=== PATIENT | female | born 1990 | race Two or more races ===

== ENCOUNTER 2019-07-21 13:35 | Observation (INO) | payer MEDICAID ==
[~2019-07-21] VITALS: Ht 167.6 cm; Wt 106.6 kg
[~2019-07-21 13:35] MED LIST: INSLISPI SC; INSUINJ2 SC; PREN-96 PO
[2019-07-21] MEDS ORDERED: INSR100KIT SUBCON (14:10)
[2019-07-21 14:42] LABS: Urine Bacteria FEW /hpf (None Seen); Urine Blood TRACE /uL (Negative); Urine Specific Gravity 1.006 (1.001-1.035); Urine WBC 30 /hpf (0 - 5)
[2019-07-21] MEDS ORDERED: LACTATED RINGER'S 1,000 ML IV ONE (14:45)
[2019-07-21] MEDS ORDERED: NIFEdipine 10 MG CAP PO ONE (14:45)
== END 2019-07-21 16:37 | disposition home or self-care (01) | DRG 566 ==
LOC: LDRP 13:35
PROVIDERS: ADMIT Specialist; ATTEND Specialist
DX: O26.893 Other specified pregnancy related conditions, third trimester (principal); M54.9 Dorsalgia, unspecified; R10.9 Unspecified abdominal pain; Z3A.30 30 weeks gestation of pregnancy
CPT/HCPCS: 81001; 82962; G0378; 59025; 81002; 96361

== ENCOUNTER 2019-07-24 08:25 | Observation (INO) | payer MEDICAID ==
[~2019-07-24 08:25] MED LIST changes: +INSR100KIT SUBCON
== END 2019-07-24 09:30 | disposition home or self-care (01) | DRG 563 ==
LOC: LDRP 08:25
PROVIDERS: ADMIT Specialist; ATTEND Specialist
DX: O60.03 Preterm labor without delivery, third trimester (principal); O24.419 Gestational diabetes mellitus in pregnancy, unspecified control; Z3A.30 30 weeks gestation of pregnancy
CPT/HCPCS: 59025; 76818; 81002; 82948; 82962; G0378

== ENCOUNTER 2019-09-18 09:59 | Observation (INO) | payer MEDICAID ==
[2019-09-18] MEDS ORDERED: GLYB5TAB8 PO (11:04)
[2019-09-18] MEDS ORDERED: METF-370 PO (11:04)
== END 2019-09-18 11:20 | disposition home or self-care (01) | DRG 566 ==
LOC: LDRP 09:59
PROVIDERS: ADMIT Obstetrics & Gynecology; ATTEND Obstetrics & Gynecology
DX: O24.419 Gestational diabetes mellitus in pregnancy, unspecified control (principal); O36.8330 Maternal care for abnormalities of the fetal heart rate or rhythm, third trimester, not applicable or unspecified; Z79.84 Long term (current) use of oral hypoglycemic drugs; Z3A.38 38 weeks gestation of pregnancy
CPT/HCPCS: 59025; 76818; 81002; 82962; G0378

== ENCOUNTER 2019-09-20 09:03 | Observation (INO) | payer MEDICAID ==
[~2019-09-20 09:03] MED LIST changes: +GLYB5TAB8 PO; +METF-370 PO
== END 2019-09-20 11:40 | disposition home or self-care (01) | DRG 566 ==
LOC: LDRP 09:03
PROVIDERS: ADMIT Specialist; ATTEND Specialist
DX: O24.415 Gestational diabetes mellitus in pregnancy, controlled by oral hypoglycemic drugs (principal); Z3A.38 38 weeks gestation of pregnancy
CPT/HCPCS: 59025; 76818; 81002; G0378

== ENCOUNTER 2019-09-23 19:15 | Observation (INO) | payer MEDICAID | END 2019-09-23 20:31 | disposition home or self-care (01) | DRG 566 | LOC: LDRP 19:15 | PROVIDERS: ADMIT Obstetrics & Gynecology; ATTEND Obstetrics & Gynecology | DX: O24.419 Gestational diabetes mellitus in pregnancy, unspecified control (principal); O36.8330 Maternal care for abnormalities of the fetal heart rate or rhythm, third trimester, not applicable or unspecified; Z3A.39 39 weeks gestation of pregnancy | CPT/HCPCS: 59025; 76818; 81002; 82948; 82962; G0378 ==

== ENCOUNTER 2019-09-25 15:04 | Observation (INO) | payer MEDICAID ==
[2019-09-25] MEDS ORDERED: METF-370 PO (18:27)
[2019-09-25] MEDS ORDERED: GLYB5TAB8 PO (18:28)
== END 2019-09-25 17:35 | disposition home or self-care (01) | DRG 566 ==
LOC: LDRP 15:04
PROVIDERS: ADMIT Specialist; ATTEND Specialist
DX: O24.415 Gestational diabetes mellitus in pregnancy, controlled by oral hypoglycemic drugs (principal); Z3A.39 39 weeks gestation of pregnancy
CPT/HCPCS: 59025; 76818; 81002; 82948; 82962; G0378

== ENCOUNTER 2019-09-27 12:02 | Observation (INO) | payer MEDICAID ==
[~2019-09-27 12:02] MED LIST changes: -INSLISPI SC; -INSR100KIT SUBCON; -INSUINJ2 SC
== END 2019-09-27 13:50 | disposition home or self-care (01) | DRG 566 ==
LOC: LDRP 12:02
PROVIDERS: ADMIT Obstetrics & Gynecology; ATTEND Obstetrics & Gynecology
DX: O24.419 Gestational diabetes mellitus in pregnancy, unspecified control (principal); Z3A.39 39 weeks gestation of pregnancy
CPT/HCPCS: 59025; 76818; 81002; 82948; 82962; G0378

== ENCOUNTER 2019-09-29 19:17 | Inpatient (IN) | payer MEDICAID ==
[~2019-09-29] VITALS: Ht 167.6 cm; Wt 108.0 kg
[2019-09-29] MEDS ORDERED: LACTATED RINGER'S 1,000 ML IV SCH (19:53)
[2019-09-29] MEDS ORDERED: LACT. RINGERS/OXYTOCIN 20UNITS 1,000 ML IV SCH (19:53)
[2019-09-29] MEDS ORDERED: DERMOPLAST 60ML BOTTLE TOP PRN (20:00)
[2019-09-29] MEDS ORDERED: NALBUPHINE HCL 10 MG/1ml INJECTION IV PRN (20:00)
[2019-09-29] MEDS ORDERED: METHYLERGONOVINE MALEATE 0.2 MG/ML AMP IM PRN (20:00)
[2019-09-29] MEDS ORDERED: LIDOCAINE 2%HCL (LOCAL ANESTH.) INJ 20ML MDV ID ONE (20:00)
[2019-09-29] MEDS ORDERED: PHISODERM TOP SOLN 240ML BTL TOP PRN (20:00)
[2019-09-29] MEDS ORDERED: WITCH HAZEL-GLYCERIN PAD TOP PRN (20:00)
[2019-09-29] MEDS ORDERED: CARBOPROST TROMETHAMINE 250 MCG/1ML VIAL IM PRN (20:00)
[2019-09-29 20:52] LABS: Basophils # (auto) 0.1 uL; Basophils % (auto) 0.5 % (0.0-2.0); Eosinophils # (auto) 0.1 uL; Eosinophils % (auto) 1.1 % (0.0-7.0); Hematocrit 35.3 % (36.0-46.0); Hemoglobin 11.7 g/dL (12.2-16.2); Lymphocytes # (auto) 2.3 uL; Lymphocytes % (auto) 20.4 % (10.0-50.0); Mean Corpuscular Hemoglobin 26.5 pg (28.0-32.0); Mean Corpuscular Hgb Conc. 33.2 g/dL (32.0-36.0); Mean Corpuscular Volume 79.8 fL (80.0-100.0); Monocytes # (auto) 0.8 uL; Monocytes % (auto) 6.6 % (0.0-12.0); Neutrophils # (auto) 8.2 uL; Neutrophils % (auto) 71.4 % (37.0-80.0); Platelet Count (auto) 277 10^3/uL (140-450); Red Blood Cells 4.42 10^6/uL (4.0-5.20); Red Cell Distribution Width 16.1 % (11.8-14.3); White Blood Cell 11.5 10^3/uL (4.4-10.8)
[2019-09-29 21:09] LABS: Albumin 2.6 g/dL (3.4-5.0); Calcium 8.1 mg/dL (8.5-10.1); Potassium 3.7 mmol/L (3.5-5.1)
[2019-09-29 21:12] LABS: BUN/Creatinine Ratio 16.7; Bilirubin, Total 0.3 mg/dL (0.2-1.0); Total Protein 6.8 g/dL (6.4-8.2)
[2019-09-29 21:18] LABS: INR < 0.93 (0.9-1.15); Partial Thromboplastin Time 26.9 sec (23.64-32.05)
[2019-09-29 21:20] LABS: Alcohol, Urine < 3.0 mg/dL (0-5); Amphetamine Screen, Urine NEGATIVE (NEGATIVE); Barbiturate Scree,Urine NEGATIVE (NEGATIVE); Benzodiazephine Screen, Urine NEGATIVE (NEGATIVE); Cannabinoid Screen, Urine NEGATIVE (NEGATIVE); Cocaine Screen, Urine NEGATIVE (NEGATIVE); Opiate Scree,Urine NEGATIVE (NEGATIVE); Phencyclidine Screen, Urine NEGATIVE (NEGATIVE)
[2019-09-29 21:31] LABS: Urine Bacteria FEW /hpf (None Seen); Urine Blood Negative /uL (Negative); Urine Specific Gravity 1.003 (1.001-1.035); Urine WBC 1 /hpf (0 - 5)
[2019-09-29] MEDS: ACCU-CHEK COMFORT CURVE STRIP VI SCH (22:00)
[2019-09-30] MEDS: ACCU-CHEK COMFORT CURVE STRIP VI SCH ×3 (00:31→16:15)
[2019-09-30] MEDS ORDERED: PROMETHAZINE HCL 25 MG/ML 1ML IV ONE (07:30)
[2019-09-30] MEDS ORDERED: IBUPROFEN 600 MG TAB PO PRN (09:00)
[2019-09-30] MEDS ORDERED: LACT. RINGERS/OXYTOCIN 20UNITS 1,000 ML IV ONE (10:15)
[2019-09-30 10:30] VITALS: BP 130/71
--- NOTE | 2019-09-30 10:40 | NUR ---
Ambulation: Patient OOB with standby assistance by RN. Patient ambulated to bathroom with steady gait. Patient able to void 900ml without difficulty. [facility] teaching provided with returned demonstration by patient. Clean gown provided and bed linen changed. Patient ambulated back to bed with steady gait and no distress noted. pt passed 4 golf ball sized clots upon using restroom
--- NOTE | 2019-09-30 11:23 | NUR ---
PROVIDER DR LERMA NOTIFIED OF PT BLOOD CLOTS WITH AMBULATION ORDERS RECEIVED CYTOTEC 200MG PO ONCE
--- NOTE | 2019-09-30 11:35 | NUR ---
FUNDUS 2 ABOVE UMBILICUS FIRM WITH MASSAGE RETURNED BACK TO UMBILICUS POST RESTROOM
--- NOTE | 2019-09-30 11:35 | NUR ---
TO RESTROOM PT AMBULATED TO RESTROOM STATED SHE OPHELIA A "GUSH." PT URINATED 900ML OF URINE AND VARIOUS SHAPED BLOOD CLOTS RANGING FROM BASEBALL SIZED TO DIME SIZED. NOTIFIED ORDERS RECEIVED FOR MICHELLE CATH TO BE PLACED AND CYTOTEC 600MCG RECTAL. WEIGHED 697 GRAMS
[2019-09-30] MEDS: ACETAMINOPHEN 325 MG TAB PO PRN ×2 (13:50→17:54)
--- NOTE | 2019-09-30 13:50 | NUR ---
PROVIDER DR LERMA SHOWN BLOOD CLOTS, VAGINAL BLEEDING ASSESSED: SCANT FIRM AT UMBILICUS. CONTINUE CARE.
--- NOTE | 2019-09-30 13:51 | NUR ---
TO CHAIR FOR COMFORT PER PT REQUEST SIG OTHER AT BEDSIDE, PT TOLERATED WELL, CONTINUE CARE.
--- NOTE | 2019-09-30 14:49 | NUR ---
PT REPORT RECEIVED FROM Jaqueline OSUNA RN AND John MORENO RN ON STABLE PATIENT, ASSUMING CARE.
[2019-09-30 15:30] VITALS: BP 137/85
--- NOTE | 2019-09-30 15:35 | NUR ---
PT ASSISTED BACK TO BED WITH STANDBY ASSIST BY RN. PERICARE PROVED, NEW UNDERPAD CHANGED AND PERIPAD CHANGED. PTS FUNDUS IS 1 ABOVE UMBILICUS, FIRM, SMALL RUBRA BLEEDING NOTED. NO DISTRESS NOTED. WILL CONTINUE TO MONITOR.
--- NOTE | 2019-09-30 17:00 | NUR ---
DR. LERMA AT NURSES STATION, NOTIFIED OF TRENDING VITAL SIGNS, PTS TRENDING URINE OUTPUT, PTS FUNDUS IS FIRM, 1 ABOVE UMBILICUS, SMALL RUBRA BLEEDING NOTED, PTS 1600 BLOOD SUGAR WAS 183MG/GL. PER PT, SHE JUST ATE PASTA AND TRAIL MIX. PER DR. LERMA CONTINUE WITH Q6HR BLOOD SUGARS AND KEEP PTS MICHELLE CATHETER IN UNTIL THE MORNING. READ BACK AND VERIFIED ORDERS. WILL CARRY OUT.
[2019-09-30 18:45] VITALS: BP 123/78
--- NOTE | 2019-09-30 19:00 | NUR ---
Received orders from Dr. Chung to perform before meals blood glucose check and fasting.
[2019-09-30 23:15] VITALS: BP 140/72
[2019-10-01 02:50] VITALS: BP 122/73
[2019-10-01 04:08] LABS: RPR Non Reactive (Non Reactive)
[2019-10-01 05:37] LABS: Basophils # (auto) 0.1 uL; Basophils % (auto) 0.7 % (0.0-2.0); Eosinophils # (auto) 0.2 uL; Eosinophils % (auto) 1.7 % (0.0-7.0); Hematocrit 25.2 % (36.0-46.0); Hemoglobin 8.5 g/dL (12.2-16.2); Lymphocytes # (auto) 3.6 uL; Lymphocytes % (auto) 30.3 % (10.0-50.0); Mean Corpuscular Hgb Conc. 33.7 g/dL (32.0-36.0); Mean Corpuscular Volume 80.1 fL (80.0-100.0); Monocytes # (auto) 0.7 uL; Monocytes % (auto) 5.6 % (0.0-12.0); Neutrophils # (auto) 7.3 uL; Neutrophils % (auto) 61.7 % (37.0-80.0); Nucleated Red Blood Cells % 0.1 %; Platelet Count (auto) 242 10^3/uL (140-450); Red Blood Cells 3.14 10^6/uL (4.0-5.20); Red Cell Distribution Width 15.7 % (11.8-14.3); White Blood Cell 11.9 10^3/uL (4.4-10.8)
[2019-10-01 07:25] VITALS: BP 131/76
--- NOTE | 2019-10-01 07:25 | NUR ---
REPORT RECEIVED FROM AILEEN CASAREZ RN. WILL RESUME CARE OF PT.
--- NOTE | 2019-10-01 07:35 | NUR ---
DOCTOR PEREZ AT BEDSIDE SPEAKING WITH PT REGARDING POSSIBLE D/C. OKAY WITH DOCTOR PEREZ TO REMOVE MICHELLE CATHETER. DOCTOR PEREZ MADE AWARE OF HGB. VERBALIZED TO PT TO TAKE IRON TABLETS UPON DISCHARGE. PT VERBALIZED UNDERSTANDING.
--- NOTE | 2019-10-01 08:00 | NUR ---
Hernandez catheter dc'd Order to discontinue hernandez catheter. Hernandez dc'd with clean technique following deflation of balloon. Patient tolerated well with no complaints of pain. Continue care.
--- NOTE | 2019-10-01 08:15 | NUR ---
IV removal IV DC'd with clean sterile technique, catheter fully intact. Pressure dressing applied to site. Patient tolerated well. NOTE: REMOVED PER PT REQUEST.
[2019-10-01 10:45] VITALS: BP 131/76
--- NOTE | 2019-10-01 11:00 | NUR ---
HR MD PEREZ MADE AWARE OF PT HR OF 120. STATES TO MONITOR THE PT'S HR EVERY 30 MINUTES UNTIL 1500 THEN TO LET THE MAGNET MAKER KNOW THIS EVENING.
--- NOTE | 2019-10-01 11:15 | NUR ---
HR MOTHER STATES PRIOR TO VITALS CHECK AT 1045 THAT SHE SHOWERED AND HAD SOME CAFFEINE. MD PEREZ MADE AWARE.
--- NOTE | 2019-10-01 11:30 | NUR ---
HEART RATE: 90BPM. MD PEREZ MADE AWARE. STATES TO STILL MONITOR UNTIL 1500 TODAY EVERY 30 MINUTES AND TO HAVE ASSOCIATE EDITOR THIS EVENING REEVALUATE FOR D/C.
[2019-10-01] MEDS: ACCU-CHEK COMFORT CURVE STRIP VI SCH ×3 (12:00→18:04)
--- NOTE | 2019-10-01 12:00 | NUR ---
HEART RATE 87 BPM PATIENT SITTING UP DRINKING WATER.
--- NOTE | 2019-10-01 12:30 | NUR ---
HEART RATE 95 BPM. NO DISTRESS NOTED. PT DRINKING WATER AND STATES SCANT LOCHIA.
--- NOTE | 2019-10-01 13:00 | NUR ---
HEART RATE 100 BPM. ENCOURAGED PT TO KEEP DRINKING WATER. VERBALIZED UNDERSTANDING.
--- NOTE | 2019-10-01 13:30 | NUR ---
HEART RATE 99 BPM
--- NOTE | 2019-10-01 14:00 | NUR ---
HEART RATE 99 BPM.
--- NOTE | 2019-10-01 14:30 | NUR ---
HEART RATE 110 BPM
--- NOTE | 2019-10-01 14:50 | NUR ---
ASSISTED MOTHER WITH . STATES THE BABY DOES NOT LIKE THE NIPPLE SHIELD. PATIENT IS EVERTED WITH STIMULATION. EDUCATED PT ON HOW TO PUT BREAST/AREOLA IN BABY'S MOUTH. ASSISTED PT. VERBALIZED UNDERSTANDING. BABY IMMEDIATELY STARTED SUCKING WITH AUDIBLE SWALLOW. BABY BURPED IMMEDIATELY AFTER. TOLERATED WELL.
[2019-10-01 15:00] VITALS: BP 137/83
--- NOTE | 2019-10-01 15:00 | NUR ---
HEART RATE 98 BPM WNL. PER MD PEREZ REQUEST AFTER 1500, WAIT FOR CUSTODIAL MANAGER TO GET HERE THIS EVENING TO REASSESS AND DETERMINE POSSIBLE D/C.
[2019-10-01] MEDS: ACETAMINOPHEN 325 MG TAB PO PRN (15:12)
--- NOTE | 2019-10-01 18:00 | NUR ---
DIET GIVEN. PT SITTING UP EATING INDEPENDENTLY.
[2019-10-01 18:30] VITALS: BP 131/85
--- NOTE | 2019-10-01 19:00 | NUR ---
Harpreet Mueller CNM at nurses station, LIZET given, per CNM she is familiar with the patient. VS reviewed, labs reviewed and CNM informed patient requesting to go home this evening. Per CNM patient okay to be DC'd.
[2019-10-01 20:00] VITALS: BP 131/85
--- NOTE | 2019-10-01 20:00 | NUR ---
Discharge: Discharge instructions given as ordered. Pt encouraged to follow up with [facility] as instructed. All questions and concerns addressed. Patient verbalized understanding. Medication reconciliation completed and copy given to patient. All required/requested vaccines given and copies of vaccinations given to patient. Patient encouraged to prepare to depart unit.
--- NOTE | 2019-10-01 20:37 | NUR ---
Discharge: Patient taken to vehicle via steady ambulation with all personal belongings, accompanied by staff and family member. No distress noted at time of departure, no adverse changes in status since initial assessment.
== END 2019-10-01 20:37 | disposition home or self-care (01) | DRG 560 ==
LOC: LDRP 19:17
PROVIDERS: ADMIT Specialist; ATTEND Specialist
PROC: 10E0XZZ Delivery of Products of Conception, External Approach (ICD-10-PCS; principal; 2019-09-30)
PROC: 3E0P7VZ Introduction of Hormone into Female Reproductive, Via Natural or Artificial Opening (ICD-10-PCS; 2019-09-30)
PROC: 10907ZC Drainage of Amniotic Fluid, Therapeutic from Products of Conception, Via Natural or Artificial Opening (ICD-10-PCS; 2019-09-30)
DX: O24.425 Gestational diabetes mellitus in childbirth, controlled by oral hypoglycemic drugs (principal); O72.1 Other immediate postpartum hemorrhage; Z37.0 Single live birth; Z3A.40 40 weeks gestation of pregnancy; Z80.8 Family history of malignant neoplasm of other organs or systems; Z82.49 Family history of ischemic heart disease and other diseases of the circulatory system
CPT/HCPCS: 36415; 51702; 59025; 59409; 76805; 80053; 80307; 81001; 81002; 82948; 82962; 84112; 85025; 85610; 85730; 86592; 86850; 86900; 86901; 96361; 96366; 96375; G0378; J2590